=== PATIENT | female | born 1990 | race Caucasian/White ===

== ENCOUNTER 2017-06-15 09:20 | Emergency (ER) | payer MEDICAID ==
[~2017-06-15] VITALS: Ht 160 cm; Wt 56.7 kg
[~2017-06-15 09:20] MED LIST: COL100 PO; LAC PO; MACROBID100 MG PO; NORCO1 TA2 PO
[2017-06-15 09:59] VITALS: Ht 160 cm; Wt 56.7 kg
[2017-06-15 10:40] LABS: BASOPHIL % 0.5 % (0-2); PLATELET COUNT 230 x10^3mcL (130-400)
[2017-06-15 10:42] LABS: RED CELL DISTRIBUTION WIDTH 15.7 % (11.5-14.5)
[2017-06-15 10:52] LABS: CALCIUM 8.7 mg/dL (8.5-10.1); CARBON DIOXIDE 23.2 mmol/L (21-32); CHLORIDE SERUM 105 mmol/L (98-107); CREATININE SERUM 0.6 mg/dL (0.6-1.0); GFR1 > 60 mL/min; GLUCOSE SERUM 92 mg/dL (74-106); POTASSIUM SERUM 3.6 mmol/L (3.5-5.1); SODIUM SERUM 140 mmol/L (136-145)
[2017-06-15 10:55] LABS: ALBUMIN 3.9 g/dL (3.4-5.0); ALKALINE PHOSPHATASE 81 U/L (46-116); ALT/SGPT 16 U/L (14-59); AST/SGOT 16 U/L (15-37); BILIRUBIN TOTAL 0.34 mg/dL (0.20-1.00); CHOLESTEROL 156 mg/dL (<200); HDL CHOLESTEROL 37 mg/dL (40-60); PHOSPHOROUS 3.3 mg/dL (2.5-4.9); TOTAL PROTEIN, SERUM 8.1 g/dL (6.4-8.2); URIC ACID 4.4 mg/dL (2.6-6.0)
[2017-06-15 11:36] VITALS: BP 102/65
== END 2017-06-15 11:36 | disposition home or self-care (01) ==
LOC: ED 09:20
PROVIDERS: Emergency Medicine
DX: R00.2 Palpitations (principal)
CPT/HCPCS: 36415; Q0092

== ENCOUNTER 2018-05-10 23:27 | Emergency (ER) | payer MEDICAID ==
[~2018-05-10] VITALS: Ht 157.5 cm; Wt 62.1 kg
[2018-05-10 23:35] VITALS: Ht 157.5 cm; Wt 62.1 kg
[2018-05-11 04:18] VITALS: BP 102/63
== END 2018-05-11 04:20 | disposition home or self-care (01) ==
LOC: ED 23:27
DX: J11.00 Influenza due to unidentified influenza virus with unspecified type of pneumonia (principal); J18.9 Pneumonia, unspecified organism
CPT/HCPCS: 87804

== ENCOUNTER 2018-10-12 13:59 | Emergency (ER) | payer MEDICAID ==
[~2018-10-12] VITALS: Ht 157.5 cm; Wt 62.1 kg
[2018-10-12 14:06] VITALS: Ht 157.5 cm; Wt 62.1 kg
[2018-10-12 15:08] LABS: BASOPHIL % 0.6 % (0-2); PLATELET COUNT 236 x10^3mcL (130-400)
[2018-10-12 15:09] LABS: RED CELL DISTRIBUTION WIDTH 17.1 % (11.5-14.5)
[2018-10-12 16:15] VITALS: BP 130/72
== END 2018-10-12 16:15 | disposition home or self-care (01) ==
LOC: ED 13:59
PROVIDERS: Emergency Medicine
DX: O20.0 Threatened abortion (principal)
CPT/HCPCS: 36415

== ENCOUNTER 2018-10-22 11:29 | Emergency (ER) | payer MEDICAID ==
[~2018-10-22] VITALS: Ht 154.9 cm; Wt 59.4 kg
[2018-10-22 11:35] VITALS: Ht 154.9 cm; Wt 59.4 kg
[2018-10-22 13:34] VITALS: BP 131/69
== END 2018-10-22 13:34 | disposition home or self-care (01) ==
LOC: ED 11:29
DX: O26.891 Other specified pregnancy related conditions, first trimester (principal); K03.2 Erosion of teeth; L02.01 Cutaneous abscess of face; Z3A.01 Less than 8 weeks gestation of pregnancy

== ENCOUNTER 2018-12-27 17:21 | Emergency (ER) | payer MEDICAID ==
[~2018-12-27] VITALS: Ht 154.9 cm; Wt 63.0 kg
[2018-12-27 17:32] VITALS: BP 101/52; Ht 154.9 cm; Wt 63.0 kg
== END 2018-12-27 18:38 | disposition home or self-care (01) ==
LOC: ED 17:21
DX: O23.42 Unspecified infection of urinary tract in pregnancy, second trimester (principal); Z3A.16 16 weeks gestation of pregnancy